=== PATIENT | male | born 1970 | race African-American/Black ===

== ENCOUNTER 2017-08-24 16:08 | Emergency (ER) | payer OTHER ==
[2017-08-24] MEDS: IV NORMAL SALINE 1000ML BAG 1,000 ML IV (16:49)
[2017-08-24] MEDS: HYDROcodone/APAP 5/325MG 1 TAB TABLET PO (16:49)
[2017-08-24 16:52] LABS: ADD MAN DIFF? NO; BILIRUBIN,URINE NEGATIVE (NEG); CLARITY,URINE CLEAR; COLOR,URINE YELLOW; GLUCOSE,URINE NEGATIVE (NEG); NITRITE,URINE NEGATIVE (NEG); PROTEIN,URINE NEGATIVE (NEG-TRACE)
[2017-08-24 16:57] LABS: BASO # 0.1 x10^3/uL (0.0-0.2); BASO % 1 % (0-3); EOS # 0.2 x10^3/uL (0.0-0.7); EOS % 3 % (0-3); HEMATOCRIT 44.9 % (39.0-53.0); HEMOGLOBIN 15.7 g/dL (13.0-17.5); LYMPH # 1.9 x10^3/uL (1.0-4.8); LYMPH % 25 % (24-48); MEAN CORPUSCULAR HEMOGLOBIN 33 pg (25-35); MEAN CORPUSCULAR HGB CONC 35 g/dL (31-37); MEAN CORPUSCULAR VOLUME 93 fL (79-100); MONO # 0.5 x10^3/uL (0.0-1.1); MONO % 7 % (0-9); NEUT # 4.7 x10^3uL (1.8-7.7); NEUT % 64 % (31-73); PLATELET COUNT 256 x10^3/uL (140-400); RED BLOOD COUNT 4.81 x10^6/uL (4.30-5.70); RED CELL DISTRIBUTION WIDTH 13.1 % (11.5-14.5); WHITE BLOOD COUNT 7.5 x10^3/uL (4.0-11.0)
[2017-08-24 17:11] LABS: ANION GAP 10 (6-14); BLOOD UREA NITROGEN 7 mg/dL (8-26); CALCIUM 8.8 mg/dL (8.5-10.1); CARBON DIOXIDE 26 mmol/L (21-32); CHLORIDE 101 mmol/L (98-107); CREATININE 0.9 mg/dL (0.7-1.3); GFR 110.4; GLUCOSE 123 mg/dL (70-99); SODIUM 137 mmol/L (136-145)
[2017-08-24 17:15] LABS: ALBUMIN 3.9 g/dL (3.4-5.0); ALK PHOS 99 U/L (46-116); ALT (SGPT) 71 U/L (16-63); AST (SGOT) 58 U/L (15-37); DIRECT BILIRUBIN 0.1 mg/dL (0.0-0.2); LIPASE 136 U/L (73-393); TOTAL BILIRUBIN 0.8 mg/dL (0.2-1.0); TOTAL PROTEIN 7.3 g/dL (6.4-8.2)
[2017-08-24] MEDS ORDERED: CONTRAST GIVEN MC (17:15)
[2017-08-24 17:17] LABS: BACTERIA,URINE 0 /HPF (0-FEW); RBC,URINE 0 /HPF (0-2); WBC,URINE OCC /HPF (0-4)
[2017-08-24] MEDS: IOHEXOL 300 MG/ML 100ML VIAL. IV (17:21)
[2017-08-24] MEDS ORDERED: amLODIPine BESYLATE 5 MG TABLET PO (17:30)
[2017-08-24 18:00] LABS: TROPONINI < 0.017 ng/mL (0.000-0.055)
[2017-08-24] MEDS: LISINOPRIL 10 MG TABLET PO (18:05)
== END 2017-08-24 19:41 | disposition home or self-care (01) ==
LOC: ER 16:08
DX: R10.9 Unspecified abdominal pain (principal); I10 Essential (primary) hypertension; F17.200 Nicotine dependence, unspecified, uncomplicated
CPT/HCPCS: 36415; 74177; 80048; 80076; 81001; 83690; 84484; 85025; 93005; 99285-25; J7030; Q9967

== ENCOUNTER 2020-09-22 19:04 | Emergency (ER) | payer OTHER ==
[~2020-09-22] VITALS: Ht 180.3 cm; Wt 112.0 kg
[~2020-09-22 19:04] MED LIST: AMLO10TA4 PO; LISI1TAB23 PO; TRAM50TA PO
[2020-09-22] MEDS ORDERED: methylPREDNISolone SOD SUCC PF 125 MG/2 ML VIAL. IV ONE (20:00)
[2020-09-22] MEDS ORDERED: LABETALOL 20 MG/4 ML DISP.SYRIN. IVP ONE ×2 (20:00→22:15)
[2020-09-22 20:32] LABS: BASO # 0.1 x10^3/uL (0.0-0.2); BASO % 1 % (0-3); EOS # 0.2 x10^3/uL (0.0-0.7); EOS % 3 % (0-3); HEMATOCRIT 39.7 % (39.0-53.0); HEMOGLOBIN 13.6 g/dL (13.0-17.5); LYMPH # 1.6 x10^3/uL (1.0-4.8); LYMPH % 19 % (24-48); MEAN CORPUSCULAR HEMOGLOBIN 32 pg (25-35); MEAN CORPUSCULAR HGB CONC 34 g/dL (31-37); MEAN CORPUSCULAR VOLUME 92 fL (79-100); MONO # 0.6 x10^3/uL (0.0-1.1); MONO % 7 % (0-9); NEUT # 6.3 x10^3/uL (1.8-7.7); NEUT % 71 % (31-73); PLATELET COUNT 290 x10^3/uL (140-400); WHITE BLOOD COUNT 8.8 x10^3/uL (4.0-11.0)
[2020-09-22 20:46] LABS: CALCIUM 8.6 mg/dL (8.5-10.1); GFR 96.5; POTASSIUM 4.9 mmol/L (3.5-5.1)
[2020-09-22 21:01] LABS: ALBUMIN 3.6 g/dL (3.4-5.0); TOTAL BILIRUBIN 0.2 mg/dL (0.2-1.0); TOTAL PROTEIN 7.2 g/dL (6.4-8.2)
--- NOTE | 2020-09-22 21:25 | RAD ---
Exam: CT of chest with contrast INDICATION: Chest pain TECHNIQUE: Sequential axial images through the chest obtained following the administration 100 mL of Isovue-370 IV contrast. Sagittal and coronal reformatted images were reconstructed from the axial era a and reviewed. Exposure: One or more of the following in the visualized dose reduction techniques were utilized for this examination: 1. Automated exposure control 2. Adjustment of the MA and/or KV according to patient size 3. Use of iterative of reconstructive technique Comparisons: None FINDINGS: Visual is portions of the thyroid are unremarkable. No enlarged mediastinal lymph nodes. Heart size is normal. No pericardial effusion. Thoracic aorta has a normal course and caliber. Pulmon anup artery is not enlarged. Airways are patent. No consolidation or pneumothorax. No suspicious lung nodules are identified. Larg e paraseptal bulla noted at the right lung apex. No pleural effusion or thickening. Visualized upper abdomen is unremarkable. No suspicious osseous lesions or acute fractures. IMPRESSION: No pulmonary embolus identified within the main, lobar or segmental pulmonary arteries. Electronically signed by: Leonel Carranza MD (09/22/2020 9:22 PM) [facility]
--- NOTE | 2020-09-22 21:57 | EKG ---
[facility] [address] [place] [id number] Test Date: 2020-09-22 Test Time: 20:31:57 Pat Name: CRYS CONTRERAS Department: Room: Gender: M Flight Attendant Ramp: : [id number] Requested By: XIAO AGUILAR Order Number: [id number] Reading MD: Measurements Intervals [place] Rate: 84 P: 51 GA: 130 QRS: -6 QRSD: 94 T: 17 QT: 356 QTc: 424 Interpretive Statements SINUS RHYTHM LEFT ATRIAL ABNORMALITY LEFTWARD AXIS ABNORMAL ECG RI6.02 No previous ECG available for comparison
[2020-09-22] MEDS ORDERED: PROVENTIL HFA6.7 G2 INH (22:19)
[2020-09-22] MEDS ORDERED: PRED50TA PO (22:19)
[2020-09-22] MEDS ORDERED: DICL50TA2 PO (22:19)
--- NOTE | 2020-09-22 22:20 | PHYS DOC ---
Past Medical History Past Medical History: Hypertension (XIAO AGUILAR David SETUP TECHNICIAN) Past Surgical History: No Surgical History (XIAO AGUILAR David SETUP TECHNICIAN) Smoking Status: Current Every Day Smoker Alcohol Use: Occasionally Drug Use: None (XIAO AGUILAR KORTNEY) General Adult EDM: Chief Complaint: OTHER COMPLAINTS HPI: HPI: Patient is a 49 year old male with history of uncontrolled hypertension who presents to the ED today complaining of 7-8 out of 10 right-sided rib pain only when taking deep breaths for 4 days. Patient denies any fever, coughing or congestion. He is kind of a poor historian. Denies anything relieving the pain. Reports being a smoker. (XIAO AGUILAR SETUP TECHNICIAN) Review of Systems: Review of Systems: Constitutional: Denies fever or chills. [] Eyes: Denies change in visual acuity. [] HENT: Denies nasal congestion or sore throat. [] Respiratory: Denies cough or shortness of breath. [] Cardiovascular: Reports right-sided rib pain GI: Denies abdominal pain, nausea, vomiting, bloody stools or diarrhea. [] : Denies dysuria. [] Musculoskeletal: Denies back pain or joint pain. [] Integument: Denies rash. [] Neurologic: Denies headache, focal weakness or sensory changes. [] Psychiatric: Denies depression or anxiety. [] (XIAO AGUILAR SETUP TECHNICIAN) Heart Score: C/O Chest Pain: N/A Risk Factors: Risk Factors: DM, Current or recent (<one month) smoker, HTN, HLP, family history of CAD, obesity. Risk Scores: Score 0 - 3: 2.5% MACE over next 6 weeks - Discharge Home Score 4 - 6: 20.3% MACE over next 6 weeks - Admit for Clinical Observation Score 7 - 10: 72.7% MACE over next 6 weeks - Early Invasive Strategies (XIAO AGUILAR David SETUP TECHNICIAN) Current Medications: Current Medications Medications (Trade) Dose Ordered Sig/Joey Start Time Stop Time Status Last Admin Dose Admin Labetalol HCl (Normodyne Iv Push) 10 mg 1X ONCE 09/22/20 22:15 09/22/20 22:16 Methylprednisolone Sodium Succinate (SOLU-Medrol 125MG VIAL) 125 mg 1X ONCE 09/22/20 20:00 09/22/20 20:01 DC 6/13/21 20:53 125 MG (XIAO AGUILAR SETUP TECHNICIAN) Allergies: Allergies: Allergies Coded Allergies Type Severity Reaction Last Updated Verified No Known Drug Allergies 08/24/17 No (XIAO AGUILAR SETUP TECHNICIAN) Physical Exam: PE: Constitutional: Well developed, well nourished, no acute distress, non-toxic appearance. [] HENT: Normocephalic, atraumatic, bilateral external ears normal, oropharynx moist, no oral exudates, nose normal. [] Eyes: PERRLA, EOMI, conjunctiva normal, no discharge. [] Neck: Normal range of motion, no tenderness, supple, no stridor. [] Cardiovascular:Heart rate regular rhythm, no murmur [] Lungs & Thorax: Bilateral breath sounds clear to auscultation [] Abdomen: Bowel sounds normal, soft, no tenderness, no masses, no pulsatile masses. [] Skin: Warm, dry, no erythema, no rash. [] Back: No tenderness, no CVA tenderness. [] Extremities: No tenderness, no cyanosis, no clubbing, ROM intact, no edema. [] Neurologic: Alert and oriented X 3, normal motor function, normal sensory function, no focal deficits noted. [] Psychologic: Affect normal, judgement normal, mood normal. [] (XIAO AGUILAR SETUP TECHNICIAN) Current Patient Data: Labs: Laboratory Tests Test 09/22/20 20:20 White Blood Count 8.8 x10^3/uL (4.0-11.0) Red Blood Count 4.30 x10^6/uL (4.30-5.70) Hemoglobin 13.6 g/dL (13.0-17.5) Hematocrit 39.7 % (39.0-53.0) Mean Corpuscular Volume 92 fL (79-100) Mean Corpuscular Hemoglobin 32 pg (25-35) Mean Corpuscular Hemoglobin Concent 34 g/dL (31-37) Red Cell Distribution Width 14.0 % (11.5-14.5) Platelet Count 290 x10^3/uL (140-400) Neutrophils (%) (Auto) 71 % (31-73) Lymphocytes (%) (Auto) 19 % (24-48) L Monocytes (%) (Auto) 7 % (0-9) Eosinophils (%) (Auto) 3 % (0-3) Basophils (%) (Auto) 1 % (0-3) Neutrophils # (Auto) 6.3 x10^3/uL (1.8-7.7) Lymphocytes # (Auto) 1.6 x10^3/uL (1.0-4.8) Monocytes # (Auto) 0.6 x10^3/uL (0.0-1.1) Eosinophils # (Auto) 0.2 x10^3/uL (0.0-0.7) Basophils # (Auto) 0.1 x10^3/uL (0.0-0.2) Sodium Level 143 mmol/L (136-145) Potassium Level 4.9 mmol/L (3.5-5.1) Chloride Level 108 mmol/L (98-107) H Carbon Dioxide Level 28 mmol/L (21-32) Anion Gap 7 (6-14) Blood Urea Nitrogen 9 mg/dL (8-26) Creatinine 1.0 mg/dL (0.7-1.3) Estimated GFR (Cockcroft-Gault) 96.5 BUN/Creatinine Ratio 9 (6-20) Glucose Level 105 mg/dL (70-99) H Lactic Acid Level 1.3 mmol/L (0.4-2.0) Calcium Level 8.6 mg/dL (8.5-10.1) Magnesium Level 2.0 mg/dL (1.8-2.4) Total Bilirubin 0.2 mg/dL (0.2-1.0) Aspartate Amino Transferase (AST) 32 U/L (15-37) Alanine Aminotransferase (ALT) 33 U/L (16-63) Alkaline Phosphatase 100 U/L (46-116) Troponin I Quantitative < 0.017 ng/mL (0.000-0.055) BH-Sjp-K-Type Natriuretic Peptide 147 pg/mL (0-124) H Total Protein 7.2 g/dL (6.4-8.2) Albumin 3.6 g/dL (3.4-5.0) Albumin/Globulin Ratio 1.0 (1.0-1.7) Procalcitonin < 0.10 ng/mL (0.00-0.10) Laboratory Tests 09/22/20 20:20 Laboratory Tests 09/22/20 20:20 Vital Signs: Vital Signs Date Time Temp Pulse Resp B/P (MAP) Pulse Ox O2 Delivery O2 Flow Rate FiO2 09/22/20 21:08 84 207/119 (148) 99 Room Air 09/22/20 19:10 98.4 18 98.4 (XIAO AGUILAR SETUP TECHNICIAN) EKG: EK interpreted by Dr. Manriquez sinus rhythm heart rate 84 no STEMI [] (XIAO AGUILAR SETUP TECHNICIAN) Radiology/Procedures: Radiology/Procedures: []PROCEDURE: CT ANGIOGRAPHY CHEST Exam: CT of chest with contrast INDICATION: Chest pain TECHNIQUE: Sequential axial images through the chest obtained following the administration 100 mL of Isovue-370 IV contrast. Sagittal and coronal reformatted images were reconstructed from the axial data and reviewed. Exposure: One or more of the following in the visualized dose reduction techniques were utilized for this examination: 1. Automated exposure control 2. Adjustment of the MA and/or KV according to patient size 3. Use of iterative of reconstructive technique Comparisons: None FINDINGS: Visual is portions of the thyroid are unremarkable. No enlarged mediastinal lym ph nodes. Heart size is normal. No pericardial effusion. Thoracic aorta has a normal course and caliber. Pulmonary artery is not enlarged. Airways are patent. No consolidation or pneumothorax. No suspicious lung nodules are identified. Large paraseptal bulla noted at the right lung apex. No pleural effusion or thickening. Visualized upper abdomen is unremarkable. No suspicious osseous lesions or acute fractures. IMPRESSION: No pulmonary embolus identified within the main, lobar or segmental pulmonary arteries. Electronically signed by: Leonel Wallace MD (09/22/2020 9:22 PM) [facility] DICTATED and SIGNED BY: LEONEL WALLACE MD DATE: 09/22/20 [id number] (XIAO AGUILAR SETUP TECHNICIAN) Course & Med Decision Making: Course & Med Decision Making Pertinent Labs and Imaging studies reviewed. (See chart for details) This is a 49-year-old male patient presenting to the ED today with right-sided rib pain for 4 days, symptoms worse with deep breaths. Patient is a smoker and was advised to consider smoking cessation. Nicotine patches will be discharged with pain. Labs are negative for any acute findings. CTA chest is negative. EKG is negative. Blood pressure was very high on arrival to the ED in the 200s over low 120s. Patient states he does not take his blood pressure medicines as prescribed. He misses a lot of doses. Given labetalol in the ED. Encouraged to ensure he is taking his blood pressure medicines. He was discharged home with albuterol inhaler, prednisone. Covid test pending (BALAJUANSherifXIAO David SHEETS) Course & Med Decision Making The chart was reviewed. Care and treatment plan made by midlevel provider. I was available for consult. (NEHAL MANRIQUEZ DO) Roseanne Disclaimer: Roseanne Disclaimer: This electronic medical record was generated, in whole or in part, using a voice recognition dictation system. (XIAO AGUILAR APRN) Departure Departure Impression: Primary Impression: Person under investigation for COVID-19 Additional Impressions: Costochondritis, acute Smoking addiction Accelerated hypertension Disposition: HOME / SELF CARE / HOMELESS Condition: STABLE Referrals: HAROLDO TENA MD (PCP) Follow-up with your primary care doctor next week Patient Instructions: Costochondritis, Hypertension Additional Instructions: You were evaluated in the emergency room, your work-up was negative for any acute findings, you have a pending Covid test, please stay in isolation until results are back. We will call you with results. Consider smoking cessation. Use the nicotine patches. Take the rest of the prescribed medications as ordered. Scripts Nicotine (NICODERM CQ 21mg) 1 Each Patch.td24 1 PATCH TP DAILY, #28 PATCH 1 Refill Prov: XIAO AGUILAR SETUP TECHNICIAN 09/22/20 Albuterol Sulfate (Proventil Hfa) 6.7 Gm Hfa.aer.ad 1 PUFF INH PRN Q6HRS PRN for SHORTNESS OF BREATH, #1 EACH Prov: XIAO AGUILAR SETUP TECHNICIAN 09/22/20 Diclofenac Potassium (DICLOFENAC POTASSIUM) 50 Mg Tablet 1 TAB PO BID, #20 TAB 0 Refills Prov: XIAO AGUILAR SETUP TECHNICIAN 09/22/20 Prednisone (PREDNISONE) 50 Mg Tablet 1 TAB PO DAILY, #5 TAB Prov: XIAO AGUILAR SETUP TECHNICIAN 09/22/20 XIAO AGUILAR SETUP TECHNICIAN Sep 22, 2020 22:19 NEHAL MANRIQUEZ DO Sep 23, 2020 20:22
[2020-09-22] MEDS ORDERED: NICO1PAT21 TP (22:21)
[2020-09-22] MEDS ORDERED: IOHEXOL 350 MG/ML 100 ML VIAL. IV ONE (22:30)
[2020-09-22] MEDS ORDERED: IOHEXOL 350 MG/ML 100 ML VIAL. ONE (22:32)
[2020-09-22] MEDS ORDERED: CONTRAST GIVEN. MC PRN (22:45)
[2020-09-22 22:49] VITALS: BP 198/100
--- NOTE | 2020-09-24 09:09 | NUR ---
IP:Attempted to contact pt concerning covid results. No answer, left a voicemail to return the call.
--- NOTE | 2020-09-24 13:46 | NUR ---
IP: Pt returned the call and I informed him of the negative covid test. Pt verbalized understanding.
== END 2020-09-22 22:50 | disposition home or self-care (01) ==
LOC: ER 19:04
DX: M94.0 Chondrocostal junction syndrome [Tietze] (principal); Z20.822 Contact with and (suspected) exposure to COVID-19; I10 Essential (primary) hypertension; F17.200 Nicotine dependence, unspecified, uncomplicated
CPT/HCPCS: 36415; 71275; 80053; 83605; 83735; 83880; 84145; 84484; 85025; 87040; 93005; 96374; 96375; 99285; J2930; J3490; U0003; U0005